=== PATIENT | male | born 1945 | race Caucasian/White ===

== ENCOUNTER 2021-10-25 15:00 | Emergency (ER) | payer MEDICARE, OTHER ==
[~2021-10-25 15:00] MED LIST: ACETAMINOPHEN325 MG PO; ASPART FLEX SC; ASPIRIN CHEWABL81 MG PO; ATIVAN1 MG PO; AUGMENTIN 875-1 EACH PO; BACITRACIN15 GM TOP; BASAGLAR K100 UNIT/1 SC; BUSPAR5 MG PO; BUSPIRONE HCL15 MG PO; BUSPIRONE HCL7.5 MG PO; CARDIZEM CD180 MG PO; CARTIA XT180 MG PO; CERTAGEN1 EACH PO; DIGITEK125 MCG PO; ENDOCET 5-3251 EACH PO; FEOSOL325 MG PO; FOLIC ACID1 MG PO; FUROSEMIDE 40MG40 MG PO; GLUCOTROL5 MG PO; JANTOVEN5 MG PO; JANUMET 50-1,01 EACH PO; K-DUR20 MEQ PO; LAXATIVE OF CHOICE PO; LEXAPRO20 MG PO; LIPITOR40 MG PO; LISINOPRIL 20MG20 MG PO; LOPRESSOR25 MG PO; METFORMIN HCL500 MG PO; METOPROLOL SUCC50 MG PO; NAPROSYN375 MG PO; NITROGLYCERIN0.4 MG SL; NOVOLOG FL100 UNIT/1 SC; NYSTATIN SUSP1 ML/ML SSW; PLAVIX75 MG PO; PREDNISONE 10MG10 MG PO; PRILOSEC20 MG PO; PRINIVIL10 MG PO; RHEUMATREX2.5 MG PO; TESSALON PERLE100 MG PO; TOPROL XL 25MG25 MG PO; TOPROL XL 50 MG50 MG PO; ULTRAM50 MG PO; VENTOLIN HFA IN18 GM INH; VITAMIN D1000 UNI1 PO; XARELTO10 MG PO; XARELTO15 MG PO; XELJANZ XR11 MG PO
[2021-10-25] MEDS ORDERED: PREDNISONE 5MG T5 MG PO (15:25)
[2021-10-25] MEDS ORDERED: NORCO 5-325 TA1 EACH PO (16:42)
== END 2021-10-25 17:27 | disposition home or self-care (01) ==
LOC: FER 15:00
DX: M25.561 Pain in right knee (principal); M25.562 Pain in left knee; E11.9 Type 2 diabetes mellitus without complications; I10 Essential (primary) hypertension; I25.2 Old myocardial infarction; Z87.891 Personal history of nicotine dependence; X58.XXXA Exposure to other specified factors, initial encounter
CPT/HCPCS: 73564